=== PATIENT | female | born 1985 | race Caucasian/White ===

== ENCOUNTER 2021-10-25 08:50 | Outpatient (CLI) | payer BC | END 2021-10-25 08:51 | disposition home or self-care (01) | LOC: CSHCT 08:50 | PROVIDERS: ATTEND Student in an Organized Health Care Education/Training Program | DX: R22.0 Localized swelling, mass and lump, head (principal) | CPT/HCPCS: 70491 ==

== ENCOUNTER 2021-11-06 09:09 | Outpatient (CLI) | payer BC ==
[2021-11-06 20:04] LABS: SARS-CoV-2 PCR by NAA Not Detected (NotDetected)
== END 2021-11-06 09:10 | disposition home or self-care (01) ==
LOC: CSHLAB 09:09
PROVIDERS: ATTEND Family Medicine
DX: Z20.822 Contact with and (suspected) exposure to COVID-19 (principal)
CPT/HCPCS: U0003; U0005

== ENCOUNTER 2021-11-08 07:41 | Outpatient (CLI) | payer BC | END 2021-11-08 07:42 | disposition home or self-care (01) | LOC: CSHRAD 07:41 | PROVIDERS: ATTEND Student in an Organized Health Care Education/Training Program | DX: R13.14 Dysphagia, pharyngoesophageal phase (principal); R63.30 Feeding difficulties, unspecified; K21.9 Gastro-esophageal reflux disease without esophagitis | CPT/HCPCS: 74230 ==